=== PATIENT | female | born 1975 | race Hispanic/Latino ===

== ENCOUNTER 2021-10-01 09:53 | Emergency (ER) | payer OTHER ==
[~2021-10-01] VITALS: Ht 162.6 cm; Wt 90.7 kg
[2021-10-01] MEDS ORDERED: NAPROSYN500 MG PO (10:58)
== END 2021-10-01 11:15 | disposition home or self-care (01) ==
LOC: FSED 10:04
DX: M25.572 Pain in left ankle and joints of left foot (principal); S93.402A Sprain of unspecified ligament of left ankle, initial encounter; W01.0XXA Fall on same level from slipping, tripping and stumbling without subsequent striking against object, initial encounter; Y93.01 Activity, walking, marching and hiking; Y92.89 Other specified places as the place of occurrence of the external cause
CPT/HCPCS: 99283

== ENCOUNTER 2022-01-02 11:10 | Emergency (ER) | payer OTHER ==
[~2022-01-02] VITALS: Ht 162.6 cm; Wt 87.5 kg
[~2022-01-02 11:10] MED LIST: NAPROSYN500 MG PO
[2022-01-02] MEDS ORDERED: IBUPROFEN 600 MG TAB PO STA ×2 (11:29→11:30)
[2022-01-02] MEDS ORDERED: IBUPROFEN 600 MG TAB ONE (11:34)
[2022-01-02] MEDS ORDERED: IBUPROFEN600 MG PO (11:49)
== END 2022-01-02 11:56 | disposition home or self-care (01) ==
LOC: FSED 11:15
DX: B34.9 Viral infection, unspecified (principal); R10.2 Pelvic and perineal pain; E03.9 Hypothyroidism, unspecified
CPT/HCPCS: 83518; 87400; 99283

== ENCOUNTER 2023-02-01 09:48 | Emergency (ER) | payer OTHER ==
[~2023-02-01] VITALS: Ht 162.6 cm; Wt 81.6 kg
[~2023-02-01 09:48] MED LIST changes: +IBUPROFEN600 MG PO
[2023-02-01] MEDS ORDERED: SODIUM CHLORIDE 0.9% 1000ML 1,000 ML IV ONE (10:15)
[2023-02-01] MEDS ORDERED: SODIUM CHLORIDE 0.9% 1000ML 1,000 ML ONE ×2 (10:21→12:31)
[2023-02-01] MEDS ORDERED: ONDANSETRON HCL INJ 2MG/ML 2ML 2 MG/ML VIAL ONE (10:21)
[2023-02-01] MEDS ORDERED: POTASSIUM CHLORIDE 20 MEQ TAB CR PO STA (10:40)
[2023-02-01] MEDS ORDERED: LORAZEPAM INJ 2 MG/ML VIAL IV ONE (10:45)
[2023-02-01] MEDS ORDERED: ONDANSETRON HCL INJ 2MG/ML 2ML 2 MG/ML VIAL IV ONE (11:00)
[2023-02-01] MEDS ORDERED: SODIUM CHLORIDE 0.9% 1000ML 1,000 ML IV SCH (12:30)
[2023-02-01] MEDS ORDERED: ONDANSETRON ODT4 MG PO (13:31)
[2023-02-01 13:45] VITALS: BP 119/82; PULSE 83; RESP 17; O2SAT 96
== END 2023-02-01 13:46 | disposition home or self-care (01) ==
LOC: FSED 09:54
DX: R07.9 Chest pain, unspecified (principal); R06.02 Shortness of breath; R11.2 Nausea with vomiting, unspecified; R00.0 Tachycardia, unspecified; F14.10 Cocaine abuse, uncomplicated; F15.10 Other stimulant abuse, uncomplicated; F41.9 Anxiety disorder, unspecified; Z79.899 Other long term (current) drug therapy
CPT/HCPCS: 71045; 80053; 80307; 81003; 81025; 82553; 84484; 85025; 85379; 93005; 96374; 99284; J2060; J2405; J7030

== ENCOUNTER 2024-10-11 11:25 | Emergency (ER) | payer OTHER ==
[~2024-10-11] VITALS: Ht 162.6 cm; Wt 92.2 kg
[~2024-10-11 11:25] MED LIST changes: +ONDANSETRON ODT4 MG PO
[2024-10-11 11:40] VITALS: PULSE 61; RESP 20; TEMP 98; O2SAT 95
[2024-10-11] MEDS: IBUPROFEN 600 MG TAB PO STA (12:29)
== END 2024-10-11 12:54 | disposition home or self-care (01) ==
LOC: FSED 11:30
DX: S06.0X0A Concussion without loss of consciousness, initial encounter (principal); W01.198A Fall on same level from slipping, tripping and stumbling with subsequent striking against other object, initial encounter; Y93.01 Activity, walking, marching and hiking; Y92.89 Other specified places as the place of occurrence of the external cause; F41.9 Anxiety disorder, unspecified; F41.0 Panic disorder [episodic paroxysmal anxiety]
CPT/HCPCS: 99284

== ENCOUNTER 2024-11-17 19:46 | Emergency (ER) | payer OTHER ==
[~2024-11-17] VITALS: Ht 162.6 cm; Wt 90.3 kg
[2024-11-17 19:53] VITALS: PULSE 58; RESP 18; TEMP 97.6
[2024-11-17] MEDS ORDERED: KETOROLAC TROME10 MG PO (20:32)
[2024-11-17] MEDS: HYDROCODONE/APAP 5MG-325MG TAB PO ONE (20:32)
[2024-11-17] MEDS ORDERED: CYCLOBENZAPRINE5 MG PO (20:32)
[2024-11-17] MEDS: CYCLOBENZAPRINE HCL 10 MG TAB PO ONE (20:32)
[2024-11-17 21:16] VITALS: BP 145/80; PULSE 60; RESP 18; TEMP 97.6; O2SAT 97
== END 2024-11-17 21:16 | disposition home or self-care (01) ==
LOC: FSED 19:49
DX: S00.83XA Contusion of other part of head, initial encounter (principal); S13.4XXA Sprain of ligaments of cervical spine, initial encounter; W10.8XXA Fall (on) (from) other stairs and steps, initial encounter; Y93.01 Activity, walking, marching and hiking; Y92.89 Other specified places as the place of occurrence of the external cause; F41.9 Anxiety disorder, unspecified
CPT/HCPCS: 70450; 72125; 81003; 81025; 99283